=== PATIENT | female | born 1945 | race Caucasian/White ===

== ENCOUNTER → 2020-03-28 | Outpatient (CLI) | payer OTHER ==
[~2020-03-28] MED LIST: ASPI81CH PO; CHOL10002; CYAN1000; FURO20 PO; POTCHL20ER PO; Prilosec Otc20 MG; Prinivil10 MG PO; ROSU5 PO
[2020-03-28 12:31] LABS: Anion Gap 5 mmol/L (6-16); Blood Urea Nitrogen 35 mg/dL (8-24); Bun/Creatinine Ratio 42.2 (12.0-20.0); CO2, Blood 31 mmol/L (21-32); Calcium, Blood 9.7 mg/dL (8.5-10.1); Chloride, Blood 106 mmol/L (98-108); Creatinine, Blood 0.83 mg/dL (0.40-1.00); Glomerular Filtration Rate >60 (60-); Glucose, Blood 108 mg/dL (70-99); Potassium, Blood 4.2 mmol/L (3.5-5.5); Sodium, Blood 142 mmol/L (136-145)
== END | disposition home or self-care (01) ==
LOC: LAB SHORT 12:10 → LAB 12:10
PROVIDERS: Family Medicine
DX: I82.462 Acute embolism and thrombosis of left calf muscular vein (principal)
CPT/HCPCS: 80048

== ENCOUNTER 2022-04-12 09:51 | Day surgery (SDC) | payer OTHER ==
[~2022-04-12 09:51] MED LIST changes: -CHOL10002; -CYAN1000; +OMEP20ER PO; -Prilosec Otc20 MG; +VITAMIN D310 MC4 PO; +Vitamin B-12100 MCG PO
== END 2022-04-12 23:39 | disposition home or self-care (01) ==
LOC: MOI US 09:51
DX: C50.512 Malignant neoplasm of lower-outer quadrant of left female breast (principal)
CPT/HCPCS: 19285; 77065; A4648

== ENCOUNTER 2022-04-17 09:09 | Day surgery (SDC) | payer OTHER ==
[~2022-04-17] VITALS: Ht 154.9 cm; Wt 73.9 kg
--- NOTE | 2022-04-17 17:45 | NUR ---
PT UP AT BS TO GET DRESSED. STEADY ON FEET ALTHOUGH SHE STATES "I STILL FEEL WEAK", IV D/C'D, VS AT BASELINE. PT AMBUTLATED TO BR TO VOID. DECLINES N/V. DRESSING CDI. D/C FROM UNIT IN W/C WITH AND DAUGHTER
== END 2022-04-17 22:59 | disposition home or self-care (01) ==
LOC: NM 09:09 → ORSCMMR 09:09 → NM 10:00
PROVIDERS: Surgery
PROC: 07B60ZX Excision of Left Axillary Lymphatic, Open Approach, Diagnostic (ICD-10-PCS; principal; 2022-04-17 13:00)
PROC: 0HBU0ZZ Excision of Left Breast, Open Approach (ICD-10-PCS; principal; 2022-04-17 13:00)
DX: C50.512 Malignant neoplasm of lower-outer quadrant of left female breast (principal); Z17.0 Estrogen receptor positive status [ER+]; D36.0 Benign neoplasm of lymph nodes; I10 Essential (primary) hypertension; Z87.891 Personal history of nicotine dependence; Z86.718 Personal history of other venous thrombosis and embolism; Z79.899 Other long term (current) drug therapy
CPT/HCPCS: 38792; 76098; 88307; 88342; A9270; A9520; J0690; J1100; J1885; J2405; J2704; J2795; J3010; J7120; Q9968